=== PATIENT | female | born 1960 | race Caucasian/White ===

== ENCOUNTER 2020-01-15 07:13 | Outpatient (CLI) | payer BC ==
[2020-01-15 18:07] LABS: Anion Gap 15 mmol/L (10-20); BUN (Urea Nitrogen) 12 mg/dL (9.8-20.1); Calc. Creatinine Clearance 0 mL/min (70-130); Calcium 9.1 mg/dL (7.8-10.44); Carbon Dioxide 27 mmol/L (23-31); Chloride 102 mmol/L (98-107); Estimated GFR-MDRD 58; Glucose 81 mg/dL (80-115); Potassium 4.2 mmol/L (3.5-5.1); Sodium 140 mmol/L (136-145)
[2020-01-15 20:00] LABS: Hemoglobin 14.1 g/dL (12.0-16.0); Mean Corpuscular HGB CONC 32.1 G/DL (32.0-36.0); Mean Corpuscular Hemoglobin 30.7 PG (27.0-33.0); Mean Corpuscular Volume 95.4 fl (80.0-100.0); Platelet Count 307 10x3/uL (130-400); RBC Distribution Width 13.7 % (11.5-14.5); White Blood Cell (WBC) Count 12.2 10x3/uL (4.5-11.0)
[2020-01-15 20:17] LABS: Lymphocytes 51 % (21-51); MDiff Complete? YES; Neutrophil 37 % (42-75)
[2020-01-15 20:18] LABS: Monocytes 12 % (0-10)
[2020-01-15 20:19] LABS: RBC Morphology Normal
[2020-01-15 20:20] LABS: Platelet Morphology Comment Appears Adequate
[2020-01-16 14:39] LABS: SARS-CoV-2 MS2 Positive; SARS-CoV-2 N Gene Negative; SARS-CoV-2 S Gene Negative; SARS-CoV-2 by NAA Not Detected (NotDetected); SARS-CoV-2 orf1ab Negative
== END 2020-01-15 07:14 | disposition home or self-care (01) ==
LOC: LABBT 07:13
PROVIDERS: ATTEND Internal Medicine
DX: Z01.812 Encounter for preprocedural laboratory examination (principal); Z20.828 Contact with and (suspected) exposure to other viral communicable diseases; K57.92 Diverticulitis of intestine, part unspecified, without perforation or abscess without bleeding; K94.03 Colostomy malfunction
CPT/HCPCS: 80048; 85025; 87635; U0003

== ENCOUNTER 2020-02-06 06:15 | Outpatient (CLI) | payer BC ==
[2020-02-06 10:24] LABS: Hemoglobin 14.9 g/dL (12.0-16.0); Mean Corpuscular HGB CONC 33.1 G/DL (32.0-36.0); Mean Corpuscular Hemoglobin 31.4 PG (27.0-33.0); Mean Corpuscular Volume 94.7 fl (80.0-100.0); Platelet Count 264 10x3/uL (130-400); RBC Distribution Width 14.1 % (11.5-14.5); Red Blood Cell (RBC) Count 4.75 10x6/uL (3.90-5.20); White Blood Cell (WBC) Count 13.9 10x3/uL (4.5-11.0)
[2020-02-06 10:39] LABS: Anion Gap 18 mmol/L (10-20); BUN (Urea Nitrogen) 11 mg/dL (9.8-20.1); Calc. Creatinine Clearance 0 mL/min (70-130); Carbon Dioxide 24 mmol/L (23-31); Chloride 104 mmol/L (98-107); Glucose 72 mg/dL (80-115); Potassium 4.7 mmol/L (3.5-5.1); Sodium 141 mmol/L (136-145)
[2020-02-06 10:48] LABS: MDiff Complete? YES
[2020-02-06 10:51] LABS: Eosinophils 2 % (0-10); Lymphocytes 47 % (21-51); Monocytes 8 % (0-10); Neutrophil 38 % (42-75); Reactive Lymphocytes 5 % (0-10)
[2020-02-06 10:53] LABS: Platelet Morphology Comment Appears Adequate
[2020-02-06 10:54] LABS: RBC Morphology Normal
[2020-02-06 14:35] LABS: Hemoglobin A1c 4.7 % (4.0-6.0)
[2020-02-06 17:12] LABS: SARS-CoV-2 MS2 Positive; SARS-CoV-2 N Gene Negative; SARS-CoV-2 S Gene Negative; SARS-CoV-2 by NAA Not Detected (NotDetected); SARS-CoV-2 orf1ab Negative
== END 2020-02-06 06:16 | disposition home or self-care (01) ==
LOC: LABBT 06:15
PROVIDERS: ATTEND Surgery
DX: Z01.812 Encounter for preprocedural laboratory examination (principal); Z20.828 Contact with and (suspected) exposure to other viral communicable diseases; K94.03 Colostomy malfunction; K57.92 Diverticulitis of intestine, part unspecified, without perforation or abscess without bleeding
CPT/HCPCS: 80048; 83036; 85025; 87635; U0003

== ENCOUNTER 2020-02-09 15:47 | Outpatient (CLI) | payer BC ==
--- NOTE | 2020-03-08 11:15 | MMO ---
Bilateral MAMMO Bilat Screen [facility]. CLINICAL HISTORY: Patient is 59 years old and is seen for screening. The patient has the following family history of breast cancer: maternal grandmother, malignant (generic). The patient has no personal history of cancer. VIEWS: The views performed were: bilateral craniocaudal with tomosynthesis and bilateral mediolateral oblique with tomosynthesis. This study has been interpreted with the assistance of computer-aided detection. MAMMOGRAM FINDINGS: There are scattered fibroglandular densities. There are benign appearing calcifications seen in both breasts. There are no suspicious masses, suspicious calcifications, or new areas of architectural distortion. IMPRESSION: THERE IS NO MAMMOGRAPHIC EVIDENCE OF MALIGNANCY. A ROUTINE FOLLOW-UP MAMMOGRAM IN 1 YEAR IS RECOMMENDED. THE RESULTS OF THIS EXAM WERE SENT TO THE PATIENT. ACR BI-RADS Category 2 - Benign finding MAMMOGRAPHY NOTE: 1. A negative mammogram report should not delay a biopsy if a dominant of clinically suspicious mass is present. 2. Approximately 10% to 15% of breast cancers are not detected by mammography. 3. Adenosis and dense breasts may obscure an underlying neoplasm. Reported by: CIELO BAY MD Electonically Signed: [id number]
== END 2020-02-09 15:48 | disposition home or self-care (01) ==
LOC: BICMAMMO 15:47
PROVIDERS: ATTEND Family Medicine
DX: Z12.31 Encounter for screening mammogram for malignant neoplasm of breast (principal); Z80.3 Family history of malignant neoplasm of breast
CPT/HCPCS: 77063; 77067

== ENCOUNTER 2020-02-11 09:32 | Inpatient (IN) | payer BC ==
[2020-02-10 13:58] VITALS: BMI 19.1
[~2020-02-11 09:32] MED LIST: Bupivacaine HCl 0.5%/Epinephrine 1:200,000/PF 30 ml Vial ONE; Dexamethasone 20 MG/5 ML VIAL ONE; Glycopyrrolate 0.2 MG/ML 5 ML SYRINGE ONE; Lidocaine 1% PF 5 ML VIAL ONE; Ondansetron PF 4 MG/2 ML Vial ONE; PHENYLEPHRINE-NS 100 MCG/ML 10 ML SYRINGE ONE; PROPOFOL 200 MG/20 ML VIAL ONE; Rocuronium Bromide 10 MG/ML (10ML VIAL) ONE; ePHEDrine 50 MG/ML VIAL ONE
[2020-02-11] MEDS ORDERED: Fentanyl 100 MCG/2 ML VIAL ONE ×5 (10:21→16:18)
[2020-02-11] MEDS ORDERED: Midazolam HCl 2 mg/2 ml Vial ONE ×2 (10:21→10:55)
[2020-02-11] MEDS ORDERED: cefOXitin Sodium/Dextrose 2 GM/50 ML BAG ONE ×2 (11:00→13:47)
[2020-02-11] MEDS ORDERED: Ondansetron HCl/PF 4 MG/2 ML Vial IVP PRN (12:21)
[2020-02-11] MEDS ORDERED: Promethazine HCl 25 MG/ML VIAL SLOW IVP PRN (12:21)
[2020-02-11] MEDS ORDERED: HYDROmorphone 2 MG/ML VIAL SLOW IVP PRN (12:21)
[2020-02-11] MEDS ORDERED: Promethazine HCl 25 MG/ML VIAL IM PRN ×2 (12:21→19:00)
[2020-02-11] MEDS ORDERED: Promethazine HCl 25 MG/ML VIAL ONE (14:40)
[2020-02-11] MEDS ORDERED: D5 1/2 NS w/20 mEq KCL 1,000 ML ONE (16:22)
[2020-02-11] MEDS ORDERED: hydrALAZINE 20 MG/ML VIAL SLOW IVP PRN (18:08)
[2020-02-11] MEDS ORDERED: Fentanyl 100 MCG/2 ML VIAL SLOW IVP PRN ×2 (18:08)
[2020-02-11] MEDS ORDERED: Naloxone HCl 0.4 mg/ml Vial IV PRN (19:00)
[2020-02-11] MEDS ORDERED: fentaNYL Citrate/PF 2,000 MCG in Sodium Chloride 0.9% 60 ML IV PRN (19:00)
[2020-02-11] MEDS ORDERED: Zolpidem Tartrate 5 MG TAB PO PRN (19:00)
[2020-02-11] MEDS ORDERED: diphenhydrAMINE 25 MG CAP PO PRN (19:00)
[2020-02-11] MEDS ORDERED: Ondansetron PF 4 MG/2 ML Vial IVP PRN (19:00)
[2020-02-11] MEDS ORDERED: diphenhydrAMINE 50 MG/ML VIAL IM/IV PRN (19:00)
[2020-02-11] MEDS: Famotidine/PF 20 mg/2ml Vial SLOW IVP SCH (20:31)
[2020-02-11] MEDS: Famotidine 20 MG TAB PO SCH (23:11)
[2020-02-11] MEDS: cefOXitin Sodium/Dextrose,Iso 1 GM in Premix Bag 1 BAG IVPB SCH (23:33)
[2020-02-11] MEDS: D5 1/2 NS w/20 mEq KCL 1,000 ML IV SCH (23:36)
[2020-02-12] MEDS: cefOXitin Sodium/Dextrose,Iso 1 GM in Premix Bag 1 BAG IVPB SCH (05:46)
[2020-02-12 05:52] LABS: #Basophils 0.1 thou/uL (0.0-0.2); #Lymphocytes 3.7 thou/uL (1.20-3.40); #Monocytes 2.1 thou/uL (0.11-0.59); #Neutrophils 11.7 thou/uL (1.40-6.50); %Basophils 0.3 % (0.0-1.0); %Eosinophils 0.2 % (0.0-10.0); %Lymphocytes 21.2 % (21.0-51.0); %Monocytes 11.8 % (0.0-10.0); %Neutrophils 66.5 % (42.0-75.0); Hemoglobin 14.2 g/dL (12.0-16.0); Mean Corpuscular HGB CONC 32.6 g/dL (32.0-36.0); Mean Corpuscular Volume 98.1 fL (78.0-98.0); Mean Platelet Volume 9.8 fL (7.4-10.4); Platelet Count 223 thou/uL (130-400); RBC Distribution Width 12.5 % (11.5-14.5); Red Blood Cell (RBC) Count 4.44 mill/uL (4.20-5.40); White Blood Cell (WBC) Count 17.5 thou/uL (4.8-10.8)
[2020-02-12 06:19] LABS: Anion Gap 14 mmol/L (10-20); BUN (Urea Nitrogen) 8 mg/dL (9.8-20.1); Calc. Creatinine Clearance 66 mL/min (70-130); Calcium 8.1 mg/dL (7.8-10.44); Carbon Dioxide 24 mmol/L (23-31); Chloride 102 mmol/L (98-107); Glucose 139 mg/dL (80-115); Potassium 4.5 mmol/L (3.5-5.1); Sodium 135 mmol/L (136-145)
[2020-02-12] MEDS ORDERED: Enoxaparin Sodium 40 MG/0.4 ML SYRINGE ONE (08:18)
[2020-02-12] MEDS: Famotidine 20 MG TAB PO SCH ×2 (08:25→20:37)
[2020-02-12] MEDS: Enoxaparin Sodium 40 MG/0.4 ML SYRINGE SC SCH (08:26)
[2020-02-12] MEDS: Famotidine/PF 20 mg/2ml Vial SLOW IVP SCH ×2 (09:53→20:42)
[2020-02-12] MEDS: D5 1/2 NS w/20 mEq KCL 1,000 ML IV SCH (10:35)
--- NOTE | 2020-02-12 11:01 | PDOC.GSPN ---
Surgery Progress Note: Subj - Subjective Narrative: Ambulating and doing well. No nausea. Wants rodriguez out Surgery Progress Note: Obj - Vital signs Vital signs: Vital Signs - Most Recent Temp Pulse Resp BP Pulse Ox 98.8 F 75 16 145/75 H 97 02/12/20 08:09 02/12/20 08:09 02/12/20 08:09 02/12/20 08:09 02/12/20 08:09 - Physical Exam General: no distress Cardiovascular: regular rate and rhythm Respiratory: clear to auscultation Abdomen: soft, non tender, appropriately tender Wound: healing well Surgery Progress Note: Results - Labs Result Diagrams: 02/12/20 05:24 02/12/20 05:24 Lab results: Laboratory Results - last 12 hr 02/12/20 02/12/20 05:24 05:24 WBC 17.5 H RBC 4.44 Hgb 14.2 Hct 43.6 MCV 98.1 H MCH 32.0 H MCHC 32.6 RDW 12.5 Plt Count 223 MPV 9.8 Neutrophils % 66.5 Lymphocytes % 21.2 Monocytes % 11.8 H Eosinophils % 0.2 Basophils % 0.3 Neutrophils # 11.7 H Lymphocytes # 3.7 H Monocytes # 2.1 H Eosinophils # 0.0 Basophils # 0.1 Sodium 135 L Potassium 4.5 Chloride 102 Carbon Dioxide 24 Anion Gap 14 BUN 8 L Creatinine 0.74 Estimated GFR (MDRD) 80 Glucose 139 H Calcium 8.1 Surgery Progress Note: A/P - Problem (1) Colostomy dysfunction Current Visit: Yes Code(s): K94.03 - COLOSTOMY MALFUNCTION Status: Acute - Plan Plan: POD 1 colostomy reversal -full liquids tonight nausea -encouraged ambulation -DC rodriguez
[2020-02-12] MEDS ORDERED: D5 1/2 NS w/20 mEq KCL 1,000 ML IV SCH (11:02)
[2020-02-12] MEDS ORDERED: HYDROcodone/Acetaminophen 7.5/325 mg Tablet PO PRN ×2 (14:16)
[2020-02-12] MEDS ORDERED: FLU VACC QS2020-21(6MOS UP)/PF 60 MCG/0.5 ML SYRINGE IM ONE (21:00)
--- NOTE | 2020-02-13 07:16 | PDOC.GSPN ---
Surgery Progress Note: Subj - Subjective Patient reports: no new complaints, feels better, pain well controlled (complain s of mild diffused abdominal soreness, but controlled by pain meds.), tolerating liquids well Surgery Progress Note: Obj - Vital signs Vital signs: Vital Signs - Most Recent Temp Pulse Resp BP Pulse Ox 99.1 F 91 19 124/69 95 02/13/20 04:34 02/13/20 04:34 02/13/20 04:34 02/13/20 04:34 02/13/20 04:34 - Physical Exam General: no distress Cardiovascular: regular rate and rhythm, no murmur Respiratory: clear to auscultation, normal respiratory effort Abdomen: appropriately tender, distended Wound: dressing clean,dry,intact, healing well Surgery Progress Note: Results - Labs Result Diagrams: 02/12/20 05:24 02/12/20 05:24 Surgery Progress Note: A/P - Plan Plan: Pam Serrano is a 59 yo female POD 2 for a colostomy reversal. Pt states she feels better overall compared to yesterday. She does complain of mild diffuse abdominal soreness, but reports nothing out of the ordinary. Otherwise, pain is controlled with pain meds. Pt is tolerating liquid diet and ambulating. Servando was taken out yesterday, and pt states that she has been going to the bathroom to urinate regularly. Bowel sounds not heard during evaluation. Pt has not p assed gas or had any bowel movements. Pt denies nausea, vomiting, fever, and chills. POD 2 colostomy reversal: 1. mannie liquid diet 2. encourage ambulation and incentive spirometer 3. Potential DC today if vitals and labs are ok
[2020-02-13] MEDS: Ondansetron PF 4 MG/2 ML Vial IVP PRN ×2 (08:33→16:26)
[2020-02-13] MEDS: Enoxaparin Sodium 40 MG/0.4 ML SYRINGE SC SCH (08:33)
[2020-02-13] MEDS: Famotidine 20 MG TAB PO SCH ×2 (08:34→20:12)
[2020-02-13] MEDS: Famotidine/PF 20 mg/2ml Vial SLOW IVP SCH ×3 (08:36→20:37)
[2020-02-13] MEDS ORDERED: traMADol HCl 50 MG TAB PO PRN (10:15)
[2020-02-13] MEDS ORDERED: Fentanyl 100 MCG/2 ML VIAL SLOW IVP PRN ×2 (10:15)
[2020-02-13] MEDS ORDERED: HYDROcodone/Acetaminophen 7.5/325 mg Tablet PO PRN ×4 (10:15→10:20)
[2020-02-13] MEDS: Promethazine HCl 25 MG/ML VIAL IM PRN ×2 (10:33→19:12)
[2020-02-13] MEDS ORDERED: Scopolamine 1.5 mg/72 hour Patch TOP SCH (12:00)
--- NOTE | 2020-02-13 12:14 | PRG ---
DATE OF SERVICE: 02/13/2020 SUBJECTIVE: Ms. Serrano is having more nausea today. 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 She is going to try tramadol for pain. She has been ambulating. She is urinating without difficulty. OBJECTIVE: VITAL SIGNS: She is afebrile. Her vital signs are stable. ABDOMEN: Her abdomen is soft, appropriately tender, mildly distended. There are decreased bowel sounds. Midline wound healing well. ASSESSMENT: Postop day #2, colostomy reversal. PLAN: Liquid diet only. Continue to encourage ambulation. I suspect she has expected postop ileus that should slowly improve. Job ID: [id number]
--- NOTE | 2020-02-13 18:04 | OP ---
DATE OF PROCEDURE: 02/11/2020 PREOPERATIVE DIAGNOSIS: History of diverticulitis, attention to colostomy. POSTOPERATIVE DIAGNOSIS: History of diverticulitis, attention to colostomy. PROCEDURES PERFORMED: 1. Colostomy reversal (colon resection and colorectal anastomosis). 2. Mobilization of splenic flexure. ANESTHESIA: General. ESTIMATED BLOOD LOSS: Minimal. COMPLICATIONS: None. FINDINGS: Normal insufflation test. DESCRIPTION OF PROCEDURE: The patient was taken to the operating room and laid supine on the operating room table. After a general anesthetic was obtained, a Al was placed. The abdomen was shaved, prepped, and draped in a sterile fashion. The colon mucosa at the colostomy site had been closed shut with a silk suture. Midline incision was reopened. Cautery was dissected down into the abdominal cavity. All posterior abdominal wall adhesions were taken down without injury. Bookwalter retractor was placed. The small bowel was dissected up out of the pelvis. The rectal stump was found. Dissection was taken down posterior to the rectal stump. The left ureter was found and excluded from the dissection. The rectal stump was dissected down toward the mid rectum and at this location, a contour stapler was fired across the rectum. Next, the colostomy mucosa was ellipsed out from the left abdomen and dissected down to the fascia level. The colostomy segments brought it back into the abdominal cavity. There was not enough length to reach down in the pelvis, so the splenic flexure was mobilized in the usual fashion. This allowed for the more proximal descending colon to reach down in the pelvis under no tension. A 29 EEA was passed through a colotomy distal on this descending colon segment and brought out on the antimesenteric surface of the colon above. The reload of the contour stapler was used to fire across the colon. The resultant colostomy segment was sent to [facility] for final diagnosis. The upper colon reaches down into the pelvis under no tension. The base of the EEA was brought up through the anus and brought out on the antimesenteric surface of the rectal stump below. This was connected to the anvil from above and an anastomosis was performed. There were two good rings of tissue. This anastomosis was oversewn using silk pop-off suture. There was an area of leak on air insufflation and so in this area in the right side of the anastomosis was oversewn using silk sutures followed by silk Lembert sutures. Retest of the anastomosis with air insufflation was then negative. The abdomen was irrigated using sterile solution. All instrument counts, needle counts, and lap counts were correct. Posterior fascia was closed in the left abdomen using PDS, the anterior fascia was closed here as well. Midline fascia was closed using #1 PDS from the top and the bottom and tied in the middle. Subcutaneous tissues were irrigated copiously. The midline incision was closed using 3-0 Vicryl, 4-0 Monocryl, and Dermabond. The colostomy site was closed using pursestring of silk. A Eligio was left in the colostomy site, wound, and sterile dressings. The patient was en route to Recovery in stable condition. All instrument counts, needle counts, and lap counts were correct. Job ID: [id number]
[2020-02-14 05:50] LABS: Anion Gap 15 mmol/L (10-20); BUN (Urea Nitrogen) 14 mg/dL (9.8-20.1); Calc. Creatinine Clearance 61 mL/min (70-130); Calcium 8.5 mg/dL (7.8-10.44); Carbon Dioxide 25 mmol/L (23-31); Chloride 99 mmol/L (98-107); Glucose 86 mg/dL (80-115); Potassium 4.3 mmol/L (3.5-5.1); Sodium 135 mmol/L (136-145)
[2020-02-14 06:29] LABS: Eosinophils 2 % (0-10); Hemoglobin 13.8 g/dL (12.0-16.0); Lymphocytes 9 % (21-51); MDiff Complete? YES; Mean Corpuscular HGB CONC 30.4 g/dL (32.0-36.0); Mean Corpuscular Hemoglobin 29.6 pg (27.0-31.0); Mean Corpuscular Volume 97.2 fL (78.0-98.0); Mean Platelet Volume 10.5 fL (7.4-10.4); Monocytes 21 % (0-10); Neutrophil 68 % (42-75); Platelet Count 241 thou/uL (130-400); Platelet Morphology Comment Appears Adequate; RBC Distribution Width 12.5 % (11.5-14.5); RBC Morphology Normal; Red Blood Cell (RBC) Count 4.68 mill/uL (4.20-5.40); White Blood Cell (WBC) Count 24.7 thou/uL (4.8-10.8)
--- NOTE | 2020-02-14 07:39 | PDOC.GSPN ---
Surgery Progress Note: Subj - Subjective Patient reports: had a bowel movement, feels better, positive flatus, pain well controlled, tolerating liquids well Surgery Progress Note: Obj - Vital signs Vital signs: Vital Signs - Most Recent Temp Pulse Resp BP Pulse Ox 98.2 F 97 19 119/65 96 02/14/20 04:22 02/14/20 04:22 02/14/20 04:22 02/14/20 04:22 02/14/20 04:22 - Physical Exam General: no distress Cardiovascular: regular rate and rhythm, no murmur Respiratory: clear to auscultation, normal respiratory effort Abdomen: soft, positive bowel sounds, appropriately tender Wound: dressing clean,dry,intact, healing well Surgery Progress Note: Results - Labs Result Diagrams: 02/14/20 04:58 02/14/20 04:59 Lab results: Laboratory Results - last 12 hr 02/14/20 02/14/20 04:58 04:59 WBC 24.7 H RBC 4.68 Hgb 13.8 Hct 45.5 MCV 97.2 MCH 29.6 MCHC 30.4 L RDW 12.5 Plt Count 241 MPV 10.5 H Neutrophils % (Manual) 68 Lymphocytes % (Manual) 9 L Monocytes % (Manual) 21 H Eosinophils % (Manual) 2 Plt Morphology Comment Appears Adequate RBC Morph Comment Normal Sodium 135 L Potassium 4.3 Chloride 99 Carbon Dioxide 25 Anion Gap 15 BUN 14 Creatinine 0.79 Estimated GFR (MDRD) 74 Glucose 86 Calcium 8.5 Surgery Progress Note: A/P - Plan Plan: Ms. Serrano is a 59 yo female POD 3 for colostomy reversal. She was feeling signi ficant nausea yesterday but currently feels better overall. Her white blood cell count is up at 24.7. Pain is controlled. She has not ambulated since her nausea came up yesterday, but feels that she can today. She is urinating w/o difficulty. She had a bowel movement this morning. POD 3 colostomy reversal: continue monitoring WBC restart IV and fluids continue encouraging ambulation and incentive spirometer Potential discharge tomorrow if pt is doing better and WBC has reduced.
[2020-02-14] MEDS: D5 1/2 NS w/20 mEq KCL 1,000 ML IV SCH ×3 (09:14→22:49)
[2020-02-14] MEDS: Enoxaparin Sodium 40 MG/0.4 ML SYRINGE SC SCH (09:15)
[2020-02-14] MEDS: Famotidine/PF 20 mg/2ml Vial SLOW IVP SCH ×2 (09:15→20:02)
[2020-02-14] MEDS: Famotidine 20 MG TAB PO SCH ×2 (09:15→20:00)
[2020-02-15 05:13] LABS: #Basophils 0.1 thou/uL (0.0-0.2); #Eosinphils 0.7 thou/uL (0.0-0.7); #Lymphocytes 3.3 thou/uL (1.20-3.40); %Basophils 0.5 % (0.0-1.0); %Eosinophils 4.3 % (0.0-10.0); %Lymphocytes 20.5 % (21.0-51.0); %Monocytes 12.4 % (0.0-10.0); %Neutrophils 62.2 % (42.0-75.0); Hemoglobin 12.5 g/dL (12.0-16.0); Mean Corpuscular HGB CONC 32.9 g/dL (32.0-36.0); Mean Corpuscular Hemoglobin 31.8 pg (27.0-31.0); Mean Corpuscular Volume 96.5 fL (78.0-98.0); Mean Platelet Volume 10.2 fL (7.4-10.4); Platelet Count 237 thou/uL (130-400); RBC Distribution Width 12.1 % (11.5-14.5); Red Blood Cell (RBC) Count 3.95 mill/uL (4.20-5.40); White Blood Cell (WBC) Count 16.1 thou/uL (4.8-10.8)
[2020-02-15 05:29] LABS: Anion Gap 13 mmol/L (10-20); BUN (Urea Nitrogen) 11 mg/dL (9.8-20.1); Calc. Creatinine Clearance 73 mL/min (70-130); Calcium 7.9 mg/dL (7.8-10.44); Carbon Dioxide 25 mmol/L (23-31); Chloride 103 mmol/L (98-107); Glucose 104 mg/dL (80-115); Potassium 3.9 mmol/L (3.5-5.1); Sodium 137 mmol/L (136-145)
--- NOTE | 2020-02-15 07:29 | PDOC.GSPN ---
Surgery Progress Note: Subj - Subjective Patient reports: no new complaints, had a bowel movement, feels better, pain wel l controlled, tolerating liquids well Surgery Progress Note: Obj - Vital signs Vital signs: Vital Signs - Most Recent Temp Pulse Resp BP Pulse Ox 98 F 80 16 121/70 96 02/15/20 03:46 02/15/20 03:46 02/15/20 03:46 02/15/20 03:46 02/15/20 03:46 - Physical Exam General: no distress Cardiovascular: regular rate and rhythm, no murmur Respiratory: clear to auscultation, normal respiratory effort Abdomen: soft, positive bowel sounds, appropriately tender Wound: healing well Surgery Progress Note: Results - Labs Result Diagrams: 02/15/20 04:42 02/15/20 04:42 Lab results: Laboratory Results - last 12 hr 02/15/20 02/15/20 04:42 04:42 WBC 16.1 H RBC 3.95 L Hgb 12.5 Hct 38.1 MCV 96.5 MCH 31.8 H MCHC 32.9 RDW 12.1 Plt Count 237 MPV 10.2 Neutrophils % 62.2 Lymphocytes % 20.5 L Monocytes % 12.4 H Eosinophils % 4.3 Basophils % 0.5 Neutrophils # 10.0 H Lymphocytes # 3.3 Monocytes # 2.0 H Eosinophils # 0.7 Basophils # 0.1 Sodium 137 Potassium 3.9 Chloride 103 Carbon Dioxide 25 Anion Gap 13 BUN 11 Creatinine 0.66 Estimated GFR (MDRD) Greater than 90 Glucose 104 Calcium 7.9 Surgery Progress Note: A/P - Plan Plan: Ms. Serrano is a 59 yo female POD 4 for a colostomy reversal. Overall, pt is doing well. WBC down from 24.7 to 16.1. Pt denies fever, nausea, and vomiting. Pt is a mbulating, and urinating frequently. She had 1 bowel movement earlier. Pt is afebrile. Vital signs are stable. Abdomen is soft, slightly distended, and appropriately tender. Bowel sounds are heard, and wound is healing. POD 4 for colostomy reversal: Continue to encourage ambulation and incentive spirometry Home once vitals and labs are stabilized
[2020-02-15] MEDS: Famotidine/PF 20 mg/2ml Vial SLOW IVP SCH (09:18)
[2020-02-15] MEDS: Famotidine 20 MG TAB PO SCH (09:18)
[2020-02-15] MEDS: Enoxaparin Sodium 40 MG/0.4 ML SYRINGE SC SCH (10:57)
[2020-02-15 11:59] VITALS: BP 134/75; TEMP 98.4
[2020-02-15] MEDS: D5 1/2 NS w/20 mEq KCL 1,000 ML IV SCH (12:00)
--- NOTE | 2020-02-15 18:38 | DIS ---
DATE OF ADMISSION: 02/11/2020 DATE OF DISCHARGE: 02/15/2020 ADMITTING DIAGNOSES: Colostomy dysfunction, history of diverticulitis. DISCHARGE DIAGNOSES: Colostomy dysfunction, history of diverticulitis. PROCEDURE: Colostomy reversal by Dr. George without complication. CONDITION ON DISCHARGE: Improved. STAFF: Mukesh George MD HOSPITAL COURSE: On postop day 4, the patient is doing well. She is tolerating her full liquid diet. She is ambulatory. She has no bloating. She is passing gas. She has had a bowel movement. She is to be discharged home. She will follow up with my office on February 23. Prescriptions for hydrocodone and Zofran already sent to her pharmacy. Job ID: [id number]
--- NOTE | 2020-02-18 02:09 | PQF ---
CLINICAL DOCUMENTATION CLARIFICATION FORM: Dear : Mukesh George MD Date / Time: 02/18/2020 Please exercise your independent, professional judgment in responding to the clarification form. Clinical indicators are provided on the bottom of this form for your review Please check appropriate box(es) to clarify if the following diagnosis has been ruled in our ruled out: [ ] Ruled in ileus [ ] Continue to treat [ ] Resolved [ X] Ruled out ileus [ ] Improving [ ] Cannot rule out diagnosis [ ] Other diagnosis (Please specify if any) [ ] Unable to determine In addition, please specify: Present on Admission (POA): [ ] Yes [ ] No [ ] Unable to determine Physician Signature: Date/Time: For continuity of documentation, please document condition throughout progress notes and discharge summary. Thank You To be completed by CDI/Coding staff for physician review: Present Clinical Indicators - Signs / Symptoms / Labs Results and Location in Medical Record [x] I suspect she has expected postop ileus that should slowly improve Progress notes on 02/12 [x] Her abdomen is soft, appropriately tender, mildly distended Progress notes on 02/12 [ ] [ ] Present Risk Factors Results and Location in Medical Record [x] Colostomy reversal OP note on 02/12 [ ] Present Treatments Results and Location in Medical Record [x] Colon resection and colorectal anastomosis OP note on 02/12 [ ] Pt is tolerating liquid diet and ambulating General surgery PN on 02/12 [ ] [ ] CDS/Gum Mixer Signature: AAS Phone #: Date/Time: 02/18/2020 This is a permanent part of the Medical Record [facility]
== END 2020-02-15 14:44 | disposition home or self-care (01) | DRG 331 ==
LOC: SDC 09:32 → SURG B 18:15
PROVIDERS: ADMIT Surgery; ATTEND Surgery
PROC: 0DBM0ZZ Excision of Descending Colon, Open Approach (ICD-10-PCS; principal; 2020-02-11)
DX: Z43.3 Encounter for attention to colostomy (principal); Z90.81 Acquired absence of spleen; Z79.899 Other long term (current) drug therapy
CPT/HCPCS: 36415; 80048; 85025; 88304; J0694; J1100; J1650; J2250; J2405; J2550; J2704; J3010; J3480; J3490; S0028

== ENCOUNTER 2020-03-17 09:11 | Outpatient (CLI) | payer BC ==
--- NOTE | 2020-03-17 09:57 | RAD ---
KUB AND UPRIGHT AND PA CHEST: Date: 03/17/2020 HISTORY: Abdominal pain. FINDINGS: The bowel gas pattern appears nonobstructive. No free air demonstrated. Moderate amount of stool seen in the right colon. Postoperative changes in the left upper quadrant. Left-sided renal calculi is no kaleb. Arthritic changes of the spine are present. PA CHEST: Heart size is within normal limits. Mediastinal structures are unremarkable. Lungs are clear of any i nfiltrates. IMPRESSION: No acute findings. POS: [facility]
== END 2020-03-17 09:12 | disposition home or self-care (01) ==
LOC: RAD 09:11
PROVIDERS: ATTEND Surgery
DX: K56.49 Other impaction of intestine (principal)
CPT/HCPCS: 74022

== ENCOUNTER 2020-03-22 10:06 | Outpatient (CLI) | payer BC ==
--- NOTE | 2020-03-22 10:47 | RAD ---
ABDOMEN 2 VIEWS: HISTORY: Impaction of colon. COMPARISON: Radiograph 03/17/2020. FINDINGS: Left-sided renal calculi are similar. No dilated air-filled loops of large or small bowel. Left upper quadrant surgical clips of the abdomen. No acute osseous abnormality. No definite free air under the hemidiaphragms. Low-grade dextroscoliosis of the lumbar spine. IMPRESSION: Nephrolithiasis. No evidence for bowel obstruction. POS: [facility]
== END 2020-03-22 10:07 | disposition home or self-care (01) ==
LOC: RAD 10:06
PROVIDERS: ATTEND Surgery
DX: K56.49 Other impaction of intestine (principal); N20.0 Calculus of kidney
CPT/HCPCS: 74019

== ENCOUNTER 2021-04-01 10:33 | Outpatient (CLI) | payer BC | END 2021-04-01 10:34 | disposition home or self-care (01) | LOC: BICRAD 10:33 | PROVIDERS: ATTEND Internal Medicine Gastroenterology | DX: K56.699 Other intestinal obstruction unspecified as to partial versus complete obstruction (principal); K62.4 Stenosis of anus and rectum; K59.00 Constipation, unspecified | CPT/HCPCS: 74018 ==

== ENCOUNTER 2022-08-25 07:47 | Outpatient (CLI) | payer BC | END 2022-08-25 07:48 | disposition home or self-care (01) | LOC: BICCT 07:47 | PROVIDERS: ATTEND Family Medicine | DX: Z12.2 Encounter for screening for malignant neoplasm of respiratory organs (principal); F17.210 Nicotine dependence, cigarettes, uncomplicated | CPT/HCPCS: 71271 ==

== ENCOUNTER 2022-10-26 15:47 | Outpatient (CLI) | payer BC | END 2022-10-26 15:48 | disposition home or self-care (01) | LOC: BICMAMMO 15:47 | PROVIDERS: ATTEND Family Medicine | DX: Z12.31 Encounter for screening mammogram for malignant neoplasm of breast (principal); Z80.3 Family history of malignant neoplasm of breast | CPT/HCPCS: 77063; 77067 ==

== ENCOUNTER 2024-11-19 14:41 | Outpatient (CLI) | payer BC | END 2024-11-19 14:42 | disposition home or self-care (01) | LOC: BICRAD 14:41 | PROVIDERS: ATTEND Family Medicine | DX: M95.2 Other acquired deformity of head (principal) | CPT/HCPCS: 70250 ==

== ENCOUNTER 2024-11-27 14:22 | Outpatient (CLI) | payer BC | END 2024-11-27 14:23 | disposition home or self-care (01) | LOC: BICCT 14:22 | PROVIDERS: ATTEND Family Medicine | DX: M95.2 Other acquired deformity of head (principal) | CPT/HCPCS: 70450 ==